=== PATIENT | male | born 1995 | race Caucasian/White ===

== ENCOUNTER 2016-06-19 02:27 | Emergency (ER) | payer OTHER ==
[~2016-06-19] VITALS: Ht 180.3 cm; Wt 93.4 kg
[2016-06-19 03:10] VITALS: BP 151/69
[2016-06-19] MEDS ORDERED: TRAM-29 PO (03:34)
--- NOTE | 2016-06-19 03:34 | PHYS DOC ---
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 Patient reports he feels like his rotator cuff was injured. Patient denies any other symptomatology. Patient has no past medical history except for injuries to his rotator cuff in his right shoulder in the past. Patient has any fevers shaking chills nausea vomiting diarrhea. Review of Systems Review of Systems Constitutional: Denies fever or chills [] Eyes: Denies change in visual acuity, redness, or eye pain [] All other review of systems are negative except as documented in the history of present illness portion. Physical Exam Physical Exam Constitutional: Well developed, well nourished, no acute distress, non-toxic appearance. [] HENT: Normocephalic, atraumatic, bilateral external ears normal, oropharynx moist, no oral exudates, nose normal. [] Eyes: PERRLA, EOMI, conjunctiva normal, no discharge. [] Neck: Normal range of motion, no tenderness, supple, no stridor. [] Cardiovascular:Heart rate regular rhythm, no murmur [] Lungs & Thorax: Bilateral breath sounds clear to auscultation [] Abdomen: Bowel sounds normal, soft, no tenderness, no masses, no pulsatile masses. [] Skin: Warm, dry, no erythema, no rash. [] Back: No tenderness, no CVA tenderness. [] Extremities: No tenderness, no cyanosis, no clubbing, ROM intact, no edema. [] Neurologic: Alert and oriented X 3, normal motor function, normal sensory function, no focal deficits noted. [] Psychologic: Affect normal, judgement normal, mood normal. [] Tenderness to palpation to his right shoulder. Full range of motion intact. Positive tenderness to palpation at the acromioclavicular joint.. Neurovascularly intact. No deformity noted. EKG EKG [] Radiology/Procedures Radiology/Procedures [] Right shoulder x-ray reveals no acute deformity. Course & Med Decision Making Course & Med Decision Making Pertinent Labs and Imaging studies reviewed. (See chart for details) [] This is a 21-year-old who presents here today with a work-related injury to his right shoulder. There is no acute deformity noted on the x-ray. Patient likely has likely a sprain to his right shoulder versus an before meals injury versus rotator cuff injury. I discussed the patient the limitations of the evaluation in the ER and the need to follow-up with workman's comp for further definitive management. I recommended the patient to utilize his right upper extremity until he is cleared by Workmen's Comp. Patient be sent home with a sling and Ultram Dragon Disclaimer Dragon Disclaimer This electronic medical record was generated, in whole or in part, using a voice recognition dictation system. Departure Departure Impression: Primary Impression: Right shoulder pain Disposition: 01 HOME, SELF-CARE Condition: IMPROVED Ref[facility]: [facility] Patient Instructions: Arm Sling Use, [id number], Shoulder Pain Scripts Tramadol Hcl (Ultram)50 Mg Tablet1 Tab PO Q6HRS #14 TAB Prov:IRMA BENÍTEZ MD 06/19/16 IRMA BENÍTEZ MD Jun 19, 2016 03:34
[2016-06-19] MEDS ORDERED: TRAMADOL 50 MG TABLET. PO ONE (04:00)
--- NOTE | 2016-06-19 07:30 | RAD ---
Right shoulder, 3 views, 06/19/2016: History: Shoulder pain No fracture or dislocation is identified. There is minimal degenerative change at the AC joint with a small periarticular calcification or old fracture fragment. IMPRESSION: No acute right shoulder abnormality is detected.
== END 2016-06-19 04:02 | disposition home or self-care (01) ==
LOC: ER 02:27
DX: M25.511 Pain in right shoulder (principal)
CPT/HCPCS: 73030; 99284